=== PATIENT | male | born 1995 | race Two or more races ===

== ENCOUNTER 2024-07-16 08:19 | Outpatient (REF) | payer OTHER, SELFPAY ==
[2024-07-16 09:57] LABS: MANUAL DIFF FLAG NO
[2024-07-16 11:30] LABS: Appearance Urine Clear; Color Urine Yellow; Glucose Urine UA Negative (Negative); Leukocyte Esterase Urine Trace (Negative); Nitrite Urine Negative (Negative); Specific Gravity - Urine 1.025 (1.005-1.025); UMIC TRIGGER UACC YES; Urine Blood Negative (Negative); Urine Ketones Negative (Negative); Urine Protein Negative (Neg-Trace)
[2024-07-16 11:30] LABS: Basophils Absolute Auto 0.1 X10*3/uL (0.0-0.2); Eosinophils Absolute Auto 0.1 X10*3/uL (0.0-0.4); Eosinophils Percent Auto 1.1 % (0-4); Hematocrit 46.2 % (42.0-52.0); Hemoglobin 15.8 g/dl (14.0-18.0); Imm Gran Abs Auto 0.02 X10*3/uL (0.00-0.03); Imm Gran Pct Auto 0.3 % (0.0-0.4); Lymphocytes Absolute Auto 2.9 X10*3/uL (1.2-4.9); Lymphocytes Percent Auto 46.7 % (20-40); Mean Corpuscular HGB Conc 34.2 g/dl (31.0-36.0); Mean Corpuscular Hemoglobin 28.9 pg (27.0-33.0); Mean Corpuscular Volume 84.6 fL (80.0-98.0); Mean Platelet Volume 10.8 fL (9.4-12.4); Monocytes Absolute Auto 0.4 X10*3/uL (0.1-1.2); Monocytes Percent Auto 7.1 % (2-11); Neutrophils Absolute Auto 2.7 x10*3/uL (2.0-8.3); Neutrophils Percent Auto 43.8 % (45-73); Platelet Count 243 X10*3/uL (160-400); Red Blood Count 5.46 X10*6/uL (4.60-5.80); Red Cell Distribution Width 11.9 % (11.0-16.0); White Blood Count 6.2 X10*3/uL (4.8-10.8)
[2024-07-16 11:38] LABS: Bacteria Urine None Seen (None Seen); Hyaline Casts Urine 0-2 /LPF (0-2); RBC Urine 0-2 /HPF (0-2); Squamous Epithelial Cell Urine 0-2 /HPF (0-2); WBC Urine 0-5 /HPF (0-5)
[2024-07-16 12:23] LABS: Erythrocyte Sedimentation Rate 2 MM/HR (0-15)
[2024-07-16 12:55] LABS: Alanine Aminotransferase 66 U/L (0-40); Albumin Level 4.6 g/dL (3.5-5.0); Alkaline Phosphatase 65 U/L (39-117); Anion Gap 10 (12-20); Aspartate Amino Transferase 31 U/L (5-37); Bilirubin Total 0.3 mg/dL (0.0-1.0); Blood Urea Nitrogen 12 mg/dL (9-16); Calcium 9.2 mg/dL (8.4-10.2); Carbon Dioxide 23 mmol/L (22-29); Chloride 111 mmol/L (96-108); Cholesterol 179 mg/dL (<200); Estimated Glomerular Filt Rate > 60; Glucose Fasting 84 mg/dL (60-99); HDL Cholesterol 34 mg/dL (>40); LDL Cholesterol Calculated 123 mg/dL (<100); Potassium 4.4 mmol/L (3.3-5.1); Sodium 140 mmol/L (135-145); TSH reflex Free T4 1.06 uIU/mL (0.32-4.0); Total Protein 7.8 g/dL (6.5-8.0); Triglycerides 112 mg/dL (<150); Vitamin D 25-OH Total 22.8 ng/mL (>30)
== END 2024-07-16 08:20 | disposition home or self-care (01) ==
LOC: HO.LAB 08:19
DX: Z76.89 Persons encountering health services in other specified circumstances (principal); R12 Heartburn; Z00.00 Encounter for general adult medical examination without abnormal findings
CPT/HCPCS: 36415; 80053; 80061; 81001; 82306; 84443; 85025; 85652; 96127; 99202

== ENCOUNTER 2024-07-16 08:19 | Outpatient (AMB) | payer OTHER, SELFPAY ==
--- NOTE | 2024-07-16 08:23 | A.OFFPC_ITS ---
Vital Signs 07/16/24 08:24 Height 5 ft 9.29 in Weight 203 lb 6 oz BMI 29.8 BP 116/76 Blood Pressure Location Rt brachial Position Sitting Pulse 70 Pulse Source Pulse Oximeter Temp 97.5 F Temp Source Skin Pulse Oximetry (%) 96 Oxygen Delivery Method Room Air Intake Visit Reasons: Establish Care Intake Note: Patient is a new patient here to establish care for wellness visit. Transferring care from [facility] ([place]). Medical records have not been requested and have not received. 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 Operator: Present Accompanied by: Spouse Allergies No Known Allergies Allergy (Verified 07/16/24 08:39) Medication List - Last Reconciled 07/16/24 by DAY Zelaya No Known Home Meds Tobacco use date assessed: 07/16/24 Dental Screening Dental Screen Date: 07/16/24 Did you have a dental visit in the last 12 months?: No Did you have a dental problem in the last 6 months where you did not have access to dental care?: No Was dental information given to patient?: No HPI Establish Care HPI Details Previous PCP: a while ago, does not remember the name Last visit:1-2 years Last PE:not for awhile Specialist: GI OBGYN:n/a Past medical history: heart burn for along time-reason, reports gi and having an endoscopy done Medications: no medications currently Family HX:n/a Problem: The patient is a 28-year-old male presenting to establish care The patient is East Slavic speaking, ASL utilized He was treated but still has the heart burn, like heaviness in the stomach that the point of feeling like he cannot breath Reports that he was treated with a large dose of omeprazole about close to a year ago reports that he had an egd and was told everything was fine Reports that he gets the heartburn when he eats anything and not just specific foods Reports drinking coffee sometimes, denies alcohol intake, and denies smoking He denies constipation or diarrhea. He reports nausea after eating in the mornings, denies vomiting He reports a sour taste in her mouth at times This burning in the epigastric region. Reports at time he feels a pain in the right lower abdomen He denies pain today. No pain with deep palpation in all abdominal quadrants We will start the patient on pantoprazole 40 mg daily We will obtain the patient results of EGD Labs ordered for the patient to get an as soon as possible Patient to return for physical examined 2 weeks [facility] Medical History (Updated 07/18/24 @ 09:27 by Jaspal Hurst MD) No pertinent past medical history Surgical History History of endoscopy Social History Housing: House Alcohol intake: never Patient Tobacco Use Status: Never used Tobacco e-Cigarette/Vaping Use: Never Used Second Hand Smoke Exposure: No service: No Current occupational status: employed 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 1. Little interest or pleasure in doing things: not at all 2. Feeling down, depressed, or hopeless: not at all 3. Trouble falling or staying asleep, or sleeping too much: not at all 4. Feeling tired or having little energy: not at all 5. Poor appetite or overeating: not at all 6. Feeling bad about yourself - or that you are a failure or have let yourself or your family down: not at all 7. Trouble concentrating on things, such as reading the newspaper or watching television: not at all 8. Moving or speaking so slowly that other people could have noticed. Or the opposite - being so fidgety or restless that you have been moving around a lot more than usual: not at all 9. Thoughts that you would be better off or of hurting yourself in some way: not at all Total score: 0 Depression Screening Interpretation: Negative Depression Screening Done: Yes 09329 - PHQ-9 Billing: Yes Source: Developed by Drs. Darnell Poole, Jenifer Hickman, Matthew Bah and colleagues, with an educational aime from [employer]. Thrive Questionnaire Date Thrive assessed: 07/16/24 I am a: Patient What is your living situation today?: I have a steady place to live Within the past 12 months, did the food you bought not last and you didn't have the money to get more?: Never true Within the past 12 months, did you worry whether your food would run out before you got money to buy more?: Never true Do you have trouble paying for medicines?: No Do you have trouble getting transportation to medical appointments?: No Do you have trouble paying your heating and electricity bill?: No Do you have trouble taking care of your child, family member or friend?: No Do you have trouble with day-to-day activities such as bathing, preparing meals, shopping, managing finances, etc.?: No Are you currently unemployed and looking for a job?: No Are you interested in more education?: No Please select the resources that you would like help with: None Currently or been in a relationship where the following occur: No concerns reported THRIVE Score: 0 AUDIT C Alcohol Use Questionnaire (AUDIT-C) 1. How often do you have a drink containing alcohol?: Never 3. How often do you have six or more drinks on one occasion?: Never Total Score: 0 Score Reviewed/Action Taken: Yes PHILOMENA-7 AMB Questionnaire PHILOMENA-7 Date PHILOMENA - 7 assessed: 07/16/24 Feeling nervous, anxious, or on edge: 0 = Not at all Not being able to stop or control worryin = Not at all Worrying too much about different things: 0 = Not at all Trouble relaxin = Not at all Being so restless that it is hard to sit still: 0 = Not at all Becoming easily annoyed or irritable: 0 = Not at all Feeling afraid as if something awful might happen: 0 = Not at all Total PHILOMENA-7 score (0-4 normal; 5-9 mild; 10-14 moderate; 15-21 severe): 0 Source: Developed by Drs. Darnell Pooel, Jenifer Hickman, Matthew Bah and colleagues, with an educational aime from [employer]. PHILOMENA-7 Assessment Billing PHILOMENA-7 Assessment Tool: PHILOMENA-7 Assessment 23927 Review of Systems Const Details: Denies chills, Denies fatigue, Denies fever(s), Denies headache(s) and Denies weakness HEENT Denies change in vision, Denies dizziness, Denies headache(s), Denies hearing loss, Denies nasal congestion, Denies sinus pain, Denies sinus pressure and Denies sore throat Card Denies chest pain, Denies lightheadedness, Denies dyspnea and Denies other (palpitations) Resp Denies cough, Denies dyspnea and Denies wheezing GI Reports right lower quadrant abdominal pain intermittently, Denies melena, Denies hematochezia, Denies change in bowel habits, + dyspepsia with all foods and ++nausea in the mornings after eating Denies hematuria and Denies dysuria Musc Denies abnormal gait, Denies myalgias, Denies arthralgias, Denies numbness and Denies tingling Skin/Breast Denies rash, Denies unusual bruising and Denies wounds Neuro Denies abnormal gait, Denies dizziness, Denies headache(s), Denies memory loss, Denies numbness, Denies Sensory deficit (Neuro), Denies tingling and Denies weakness Psych Denies anxiety, Denies depression and Denies memory loss Endo Denies cold intolerance, Denies fatigue, Denies heat intolerance, Denies polydipsia and Denies polyuria Uriel/Lymph Denies easy bleeding and Denies easy bruising Aller/Immun Denies wheezing Physical exam (Primary Care) Vital Signs: Last Vital Signs Temp 97.5 F 07/16/24 08:24 Pulse 70 07/16/24 08:24 BP 116/76 07/16/24 08:24 Pulse Ox 96 07/16/24 08:24 Oxygen Delivery Method Room Air 07/16/24 08:24 BMI result Body Mass Index 29.8 Tobacco/Smoking Status: Tobacco use Status Tobacco use date assessed 07/16/24 07/16/24 08:27 Patient Tobacco Use Status Never used Tobacco 07/16/24 08:27 e-Cigarette/Vaping Use Never Used 07/16/24 08:27 PHQ-9: PHQ-9 Score PHQ-9: Total score 0 07/16/24 10:03 Depression Screening Interpretation: Negative Thrive Assessment: Date of Thrive Assessment Date Thrive assessed 07/16/24 07/16/24 08:27 Currently or been in a relationship where the following occur: No concerns reported Const Other: General: no acute distress, well developed, alert and awake Nutritional Appearance: well nourished Orientation/consciousness: patient oriented x3 HENMT Head: Yes normocephalic and Yes atraumatic Ears: hearing grossly normal bilaterally and TM's normal bilaterally General nose exam: Normal external nose present and Normal nares present Mouth: Normal oral and palatal mucosa present and moist mucous membranes Teeth and gingiva: dentition normal Throat: Yes oropharynx normal Eyes Pupils: Equal, round and reactive pupils present and Pupil accommodation reflex normal EOM: EOMs intact bilaterally Neck Neck: Yes normal visual inspection, Yes no lymphadenopathy and Yes trachea midline Thyroid: Thyroid normal Carotids: no bruits Lymphatic: no lymphadenopathy noted Chest Chest palpation & inspection: normal inspection of the chest Resp Effort & Inspection: normal respiratory effort Auscultation: clear to auscultation bilaterally Cardio Rate: regular rate Rhythm: regular rhythm Heart sounds: S1 normal heart sound present, S2 normal heart sound present, no gallops, no murmurs and no rubs Bruits: no abdominal aortic bruits and no carotid bruits GI Palpation (GI): No Abdominal aortic bruit present, Soft to palpation, nontender, No hepatosplenomegaly present and No Rebound tenderness present Auscultation: normal bowel sounds General: Yes no CVA tenderness Back/Spine/Pelvis Back: no CVA tenderness Cervical Spine: cervical ROM normal and No Cervical spine tenderness Thoracic/Lumbar Spine: Lumbar or thoracic tenderness Skin General: warm and dry. Normal skin color. Normal skin turgor Lesions: no lesions Nails: normal Neuro General: patient oriented x3, gait normal Cranial nerves: Yes Equal, round and reactive pupils present Cognition (Neuro): normal cognition Gait exam (Neuro): Normal gait present Extrem General: Yes normal to inspection, No edema and No calf tenderness Psych Appearance: grossly normal Affect: normal affect Attitude: cooperative Thought process: Normal thought process present Coding Level of Care Code New Pt Level 4 (76195) Diagnoses Encounter to establish care Z76.89 Heart burn R12 Additional Codes PHILOMENA-7 Assessment Billing - PHILOMENA-7 Assessment Tool: PHILOMENA-7 Assessment 93401 ([id number]) PHQ-9 - 59106 - PHQ-9 Billing: Yes ([id number]) Time Spent (min) 33 Assessment & Plan Assessment & Plan (1) Encounter to establish care: Code(s): Z76.89 - Persons encountering health services in other specified circumstances Category: Medical Plan: Patient has not have a physical in a while, will order labs and have the patient return for an annual physical in two weeks (2) Heart burn: Code(s): R12 - Heartburn Category: Medical Plan: Patient reports and history of heartburn, close to a year ago he had an EGD- reports that he was told it was fine Reports that he was treated on high dose of omeprazole, but the heartburn came back We will start the patient on pantoprazole 40 mg daily Plan To return in 2 weeks for his annual physical examination Orders: Orders TSH reflex Free T4 07/16/24 R12 - Heartburn, - Encounter for general adult medical examination without abnormal findings Lipid Panel 07/16/24 R12 - Heartburn, - Encounter for general adult medical examination without abnormal findings Glucose Fasting 07/16/24 R1 - Heartburn, - Encounter for general adult medical examination without abnormal findings Erythrocyte Sedimentation Rate 07/16/24 R1 - Heartburn, - Encounter for general adult medical examination without abnormal findings UA CC w/rflx Micro + Cult 07/16/24 R1 - Heartburn, Z - Encounter for general adult medical examination without abnormal findings Complete Blood Count Auto Diff 07/16/24 R12 - Heartburn, . - Encounter for general adult medical examination without abnormal findings Comprehensive [place]. Panel Fast 07/16/24 R1 - Heartburn, - Encounter for general adult medical examination without abnormal findings Vitamin D 25-OH Total 07/16/24 R12 - Heartburn, - Encounter for general adult medical examination without abnormal findings Medications: New pantoprazole 40 mg PO DAILY 30 tabs 2RF
[2024-07-16 08:24] VITALS: BP 116/76; PULSE 70; TEMP 36.4; O2SAT 96; BMI 29.8
== END 2024-07-16 09:12 | disposition home or self-care (01) ==
DX: Z76.89 Persons encountering health services in other specified circumstances (principal); R12 Heartburn

== ENCOUNTER 2024-07-30 08:29 | Outpatient (AMB) | payer OTHER, SELFPAY ==
[2024-07-30 08:35] VITALS: BP 106/68; PULSE 71; O2SAT 96
--- NOTE | 2024-07-30 08:35 | A.OFFPC_ITS ---
Vital Signs 07/30/24 08:35 Height 5 ft 9.29 in Weight 205 lb 2 oz BMI 30.0 BP 106/68 Blood Pressure Location Lt brachial Position Sitting Pulse 71 Pulse Source Pulse Oximeter Pulse Oximetry (%) 96 Oxygen Delivery Method Room Air Intake Visit Reasons: Annual Exam Excel Analyst Required: Yes Excel Analyst Name: [id number] Information Interpreted: non-clinical & clinical Direct Chill Caster: Not Required per policy Accompanied by: Self / Same As Patient Allergies No Known Allergies Allergy (Verified 07/30/24 08:42) Medication List - Last Reconciled 07/30/24 by DAY Zelaya pantoprazole 40 mg PO DAILY Tobacco use date assessed: 07/30/24 Dental Screening Dental Screen Date: 07/30/24 Did you have a dental visit in the last 12 months?: No Did you have a dental problem in the last 6 months where you did not have access to dental care?: No Was dental information given to patient?: No HPI Annual Exam HPI Details Dentist: up to date Eye: none Snellen: Right: Left: Corrected vision: Reports that his eyes are completed fine STI screening:n/a Colonoscopy: n/a Pap Smer:n/a PHQ-9: Flu: declines COVID: x2-no boosters Tdap:will have to ask his when he has this last Diet: regular Exercise: reports going the pool sometimes to swim patient is a 28-year-old Tristanian speaking male. clay hoister service was u tilized Patient reports that he started the pantoprazole and his symptoms has decreased significantly However, he is waking up in the morning nauseous before eating, drinking or taking his medication We are awaiting EGD report from [facility] that was done over a year ago The patient as a discharge note that says that no abnormalities was found on EGD They recommended that the patient be started on a PPI The patient wanted to know if these statements confirmed a diagnosis of GERD Discussed with patient about referring him to GI for further evaluation we will also start the patient on famotidine 40 mg at [facility] Medical History (Updated 07/30/24 @ 22:56 by DAY Zelaya) No pertinent past medical history Surgical History History of endoscopy Social History Housing: House Alcohol intake: never Patient Tobacco Use Status: Never used Tobacco e-Cigarette/Vaping Use: Never Used Second Hand Smoke Exposure: No service: No Current occupational status: employed 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 1. Little interest or pleasure in doing things: not at all 2. Feeling down, depressed, or hopeless: not at all 3. Trouble falling or staying asleep, or sleeping too much: not at all 4. Feeling tired or having little energy: not at all 5. Poor appetite or overeating: not at all 6. Feeling bad about yourself - or that you are a failure or have let yourself or your family down: not at all 7. Trouble concentrating on things, such as reading the newspaper or watching television: not at all 8. Moving or speaking so slowly that other people could have noticed. Or the opposite - being so fidgety or restless that you have been moving around a lot more than usual: not at all 9. Thoughts that you would be better off or of hurting yourself in some way: not at all Total score: 0 Depression Screening Interpretation: Negative Depression Screening Done: Yes 35986 - PHQ-9 Billing: Yes Source: Developed by Drs. Darnell Poole, Jenifer Hickman, Matthew Bah and colleagues, with an educational aime from [employer]. Thrive Questionnaire Date Thrive assessed: 07/30/24 I am a: Patient What is your living situation today?: I have a steady place to live Within the past 12 months, did the food you bought not last and you didn't have the money to get more?: Never true Within the past 12 months, did you worry whether your food would run out before you got money to buy more?: Never true Do you have trouble paying for medicines?: No Do you have trouble getting transportation to medical appointments?: No Do you have trouble paying your heating and electricity bill?: No Do you have trouble taking care of your child, family member or friend?: No Do you have trouble with day-to-day activities such as bathing, preparing meals, shopping, managing finances, etc.?: No Are you currently unemployed and looking for a job?: No Are you interested in more education?: No Please select the resources that you would like help with: None Currently or been in a relationship where the following occur: No concerns reported THRIVE Score: 0 AUDIT C Alcohol Use Questionnaire (AUDIT-C) 1. How often do you have a drink containing alcohol?: Never 3. How often do you have six or more drinks on one occasion?: Never Total Score: 0 Score Reviewed/Action Taken: Yes PHILOMENA-7 AMB Questionnaire PHILOMENA-7 Date PHILOMENA - 7 assessed: 07/30/24 Feeling nervous, anxious, or on edge: 0 = Not at all Not being able to stop or control worryin = Not at all Worrying too much about different things: 0 = Not at all Trouble relaxin = Not at all Being so restless that it is hard to sit still: 0 = Not at all Becoming easily annoyed or irritable: 0 = Not at all Feeling afraid as if something awful might happen: 0 = Not at all Total PHILOMENA-7 score (0-4 normal; 5-9 mild; 10-14 moderate; 15-21 severe): 0 Source: Developed by Drs. Darnell Poole, Jenifer Hickman, Matthew Bah and colleagues, with an educational aime from [employer]. PHILOMENA-7 Assessment Billing PHILOMENA-7 Assessment Tool: PHILOMENA-7 Assessment 56869 Review of Systems Const Details: Denies chills, Denies fatigue, Denies fever(s), Denies headache(s) and Denies weakness HEENT Denies change in vision, Denies dizziness, Denies headache(s), Denies hearing loss, Denies nasal congestion, Denies sinus pain, Denies sinus pressure and Denies sore throat Card Denies chest pain, Denies lightheadedness, Denies dyspnea and Denies other (palpitations) Resp Denies cough, Denies dyspnea and Denies wheezing GI Denies abdominal pain, Denies melena, Denies hematochezia, Denies change in bowel habits, +dyspepsia on and off depending foods and +nausea in the cocktail lounge manager prior to eating or drinking Denies hematuria and Denies dysuria Musc Denies abnormal gait, Denies myalgias, Denies arthralgias, Denies numbness and Denies tingling Skin/Breast Denies rash, Denies unusual bruising and Denies wounds Neuro Denies abnormal gait, Denies dizziness, Denies headache(s), Denies memory loss, Denies numbness, Denies Sensory deficit (Neuro), Denies tingling and Denies weakness Psych Denies anxiety, Denies depression and Denies memory loss Endo Denies cold intolerance, Denies fatigue, Denies heat intolerance, Denies polydipsia and Denies polyuria Uriel/Lymph Denies easy bleeding and Denies easy bruising Aller/Immun Denies wheezing Physical exam (Primary Care) Vital Signs: Last Vital Signs Pulse 71 07/30/24 08:35 BP 106/68 07/30/24 08:35 Pulse Ox 96 07/30/24 08:35 Oxygen Delivery Method Room Air 07/30/24 08:35 BMI result Body Mass Index 30.0 Tobacco/Smoking Status: Tobacco use Status Tobacco use date assessed 07/30/24 07/30/24 08:41 Patient Tobacco Use Status Never used Tobacco 07/30/24 08:41 e-Cigarette/Vaping Use Never Used 07/30/24 08:41 PHQ-9: PHQ-9 Score PHQ-9: Total score 0 07/30/24 08:41 Depression Screening Interpretation: Negative Thrive Assessment: Date of Thrive Assessment Date Thrive assessed 07/30/24 07/30/24 08:41 Currently or been in a relationship where the following occur: No concerns reported Const Other: General: no acute distress, well developed, alert and awake Nutritional Appearance: well nourished Orientation/consciousness: patient oriented x3 HENMT Head: Yes normocephalic and Yes atraumatic Ears: hearing grossly normal bilaterally and TM's normal bilaterally General nose exam: Normal external nose present and Normal nares present Mouth: Normal oral and palatal mucosa present and moist mucous membranes Teeth and gingiva: dentition normal Throat: Yes oropharynx normal Eyes Pupils: Equal, round and reactive pupils present and Pupil accommodation reflex normal EOM: EOMs intact bilaterally Neck Neck: Yes normal visual inspection, Yes no lymphadenopathy and Yes trachea midline Thyroid: Thyroid normal Carotids: no bruits Lymphatic: no lymphadenopathy noted Chest Chest palpation & inspection: normal inspection of the chest Resp Effort & Inspection: normal respiratory effort Auscultation: clear to auscultation bilaterally Cardio Rate: regular rate Rhythm: regular rhythm Heart sounds: S1 normal heart sound present, S2 normal heart sound present, no gallops, no murmurs and no rubs Bruits: no abdominal aortic bruits and no carotid bruits GI Palpation (GI): No Abdominal aortic bruit present, Soft to palpation, nontender, No hepatosplenomegaly present and No Rebound tenderness present Auscultation: normal bowel sounds General: Yes no CVA tenderness Back/Spine/Pelvis Back: no CVA tenderness Cervical Spine: cervical ROM normal and No Cervical spine tenderness Thoracic/Lumbar Spine: thoraco-lumbar ROM normal, No pain with thoraco-lumbar ROM, No thoracic spinal tenderness and No lumbar spinal tenderness Skin General: warm and dry. Normal skin color. Normal skin turgor Lesions: no lesions Rashes: no rashes Trauma: no lacerations or abrasions Wounds: no wounds Nails: normal Neuro General: patient oriented x3, gait normal and CN's II-XI intact bilaterally Cranial nerves: Yes Equal, round and reactive pupils present Cognition (Neuro): normal cognition Gait exam (Neuro): Normal gait present Motor exam (neuro): 5/5 motor strength present throughout Sensory Exam: No Sensory deficit (Neuro) Deep tendon reflexes (DTR's): Right patellar reflex intensity grade: 2+ and Left patellar reflex intensity grade: 2+ Extrem General: Yes normal to inspection, No edema and No calf tenderness Psych Appearance: grossly normal Affect: normal affect Attitude: cooperative Thought process: Normal thought process present Results Reviewed Results Reviewed: Laboratory Tests 07/16/24 07/16/24 09:52 09:56 WBC 6.2 RBC 5.46 Hgb 15.8 Hct 46.2 Plt Count 243 Sodium 140 Potassium 4.4 Chloride 111 H Carbon Dioxide 23 Anion Gap 10 L BUN 12 Creatinine 0.82 Estimated GFR > 60 Fasting Glucose 84 AST 31 ALT 66 H Alkaline Phosphatase 65 Triglycerides 112 Cholesterol 179 LDL Cholesterol, Calc 123 H HDL Cholesterol 34 L 25-OH Vitamin D Total 22.8 L TSH 1.06 Urine Color Yellow Urine Appearance Clear Urine pH 5.0 Ur Specific Warren 1.025 Urine Protein Negative Urine Glucose (UA) Negative Urine Ketones Negative Urine Blood Negative Urine Nitrite Negative Ur Leukocyte Esterase Trace H Urine RBC 0-2 Urine WBC 0-5 Ur Squamous Epith Cells 0-2 Urine Bacteria None Seen Hyaline Casts 0-2 Coding Level of Care Code Est Pt Prev Care 18-39y(43575) Diagnoses Annual physical exam Z00.00 Heart burn R12 Elevated LDL cholesterol level E78.00 Elevated alanine aminotransferase (ALT) level R74.01 Obesity (BMI 30.0-34.9) E66.811 Additional Codes PHILOMENA-7 Assessment Billing - PHILOMENA-7 Assessment Tool: PHILOMENA-7 Assessment 39068 ([id number]) PHQ-9 - 75017 - PHQ-9 Billing: Yes ([id number]) Time Spent (min) 39 Assessment & Plan Assessment & Plan (1) Annual physical exam: Code(s): Z00.00 - Encounter for general adult medical examination without abnormal findings Category: Medical Plan: Review guidelines and recent labs with patient (2) Heart burn: Code(s): R12 - Heartburn Category: Medical Plan: Patient reports and history of heartburn, close to a year ago he had an EGD- reports that he was told it was fine Reports that he was treated on high dose of omeprazole, but the heartburn came back The patient was started on pantoprazole 40 mg daily. He is feeling much better, but is getting early mornings nausea. Will the patient on Famotidine 40 mg at bedtime and refer the patient to GI for further evaluation (3) Elevated LDL cholesterol level: Code(s): E78.00 - Pure hypercholesterolemia, unspecified Category: Medical Plan: LDL elevated-discussed the patient about dietary modification will repeat labs in 3 months (4) Elevated alanine aminotransferase (ALT) level: Code(s): R74.01 - Elevation of levels of liver transaminase levels Category: Medical Plan: ALT elevated -discussed with the patient that this could be due to his elevated LDL. Dietary modifications recommended. CMP will be repeated in 3 months (5) Obesity (BMI 30.0-34.9): Code(s): E66.811 - Obesity, class 1 Category: Medical Plan: Diet/exercise discussed in detail Encouraged to exercise for at least 30 minutes a day/5 days a week Healthy eating discussed. Encouraged to eat fruits/vegetables, protein- fish/baked chicken, and to avoid salty/fried foods, sweets, caffeine and carbohydrates. Encouraged to increase water intake 6-8 glasses a day Plan The patient to return in 3 months f/u. Labs ordered for the patient to complete before appt Orders: Orders Vitamin D 25-OH Total 3 Months E78.00 - Pure hypercholesterolemia, unspecified, R12 - Heartburn, R74.01 - Elevation of levels of liver transaminase levels Lipid Panel 3 Months E78.00 - Pure hypercholesterolemia, unspecified, R12 - Heartburn, R74.01 - Elevation of levels of liver transaminase levels Comprehensive [place]. Panel Fast 3 Months E78.00 - Pure hypercholesterolemia, unspecified, R12 - Heartburn, R74.01 - Elevation of levels of liver transaminase levels Medications: New famotidine 40 mg PO BEDTIME 30 tabs 3RF cholecalciferol (vitamin D3) 25 mcg PO DAILY 30 caps 3RF
== END 2024-07-30 09:30 | disposition home or self-care (01) ==
DX: Z00.00 Encounter for general adult medical examination without abnormal findings (principal); R12 Heartburn; Z68.30 Body mass index [BMI] 30.0-30.9, adult; E66.811 Obesity, class 1; E78.00 Pure hypercholesterolemia, unspecified; R74.01 Elevation of levels of liver transaminase levels

== ENCOUNTER → 2024-07-30 08:29 | Outpatient (BNVA) | payer OTHER, SELFPAY | DX: Z00.00 Encounter for general adult medical examination without abnormal findings (principal); R12 Heartburn; E78.00 Pure hypercholesterolemia, unspecified; R74.01 Elevation of levels of liver transaminase levels; E66.811 Obesity, class 1; Z68.30 Body mass index [BMI] 30.0-30.9, adult; Z71.3 Dietary counseling and surveillance | CPT/HCPCS: 96127; 99395 ==

== ENCOUNTER 2024-10-25 07:36 | Outpatient (REF) | payer OTHER, SELFPAY ==
[2024-10-25 08:34] LABS: Appearance Urine Clear; Color Urine Yellow; Glucose Urine UA Negative (Negative); Leukocyte Esterase Urine Negative (Negative); Nitrite Urine Negative (Negative); Specific Gravity - Urine >= 1.030 (1.005-1.025); Urine Blood Negative (Negative); Urine Ketones Trace mg/dL (Negative); Urine Protein Negative (Neg-Trace)
[2024-10-25 09:18] LABS: Alanine Aminotransferase 60 U/L (0-40); Albumin Level 4.9 g/dL (3.5-5.0); Alkaline Phosphatase 65 U/L (39-117); Anion Gap 13 (12-20); Aspartate Amino Transferase 32 U/L (5-37); Bilirubin Total 0.4 mg/dL (0.0-1.0); Blood Urea Nitrogen 14 mg/dL (9-16); Calcium 9.3 mg/dL (8.4-10.2); Carbon Dioxide 25 mmol/L (22-29); Chloride 109 mmol/L (96-108); Cholesterol 184 mg/dL (<200); Estimated Glomerular Filt Rate > 60; Glucose Fasting 106 mg/dL (60-99); HDL Cholesterol 35 mg/dL (>40); LDL Cholesterol Calculated 126 mg/dL (<100); Potassium 4.9 mmol/L (3.3-5.1); Sodium 142 mmol/L (135-145); Total Protein 7.4 g/dL (6.5-8.0); Triglycerides 117 mg/dL (<150)
[2024-10-25 09:21] LABS: Vitamin D 25-OH Total 25.4 ng/mL (>30)
== END 2024-10-25 07:37 | disposition home or self-care (01) ==
LOC: HO.LAB 07:36
DX: Z00.00 Encounter for general adult medical examination without abnormal findings (principal); R74.01 Elevation of levels of liver transaminase levels; E78.00 Pure hypercholesterolemia, unspecified; R12 Heartburn
CPT/HCPCS: 36415; 80053; 80061; 81003; 82306

== ENCOUNTER 2025-02-21 15:36 | Outpatient (AMB) | payer OTHER, SELFPAY ==
[2025-02-21 15:38] VITALS: BP 120/60; PULSE 68; RESP 18; TEMP 36.3; O2SAT 97; BMI 29.7
--- NOTE | 2025-02-21 15:38 | A.OFFPC_ITS ---
Vital Signs 02/21/25 15:38 Height 5 ft 9.29 in Weight 202 lb 8 oz BMI 29.7 BP 120/60 Blood Pressure Location Lt brachial Position Sitting Respiration 18 Pulse 68 Pulse Source Pulse Oximeter Temp 97.3 F Temp Source Temporal Artery Scan Pulse Oximetry (%) 97 Oxygen Delivery Method Room Air Intake Visit Reasons: Follow up RE Nutrition Assistant Required: Yes Accompanied by: Self / Same As Patient Allergies No Known Allergies Allergy (Verified 02/21/25 15:57) Medication List - Last Reconciled 02/21/25 by DAY Zelaya famotidine 40 mg PO BEDTIME Tobacco use date assessed: 02/21/25 Dental Screening Dental Screen Date: 02/21/25 Did you have a dental visit in the last 12 months?: No Did you have a dental problem in the last 6 months where you did not have access to dental care?: No Was dental information given to patient?: No HPI Follow up RE HPI Details The patient is [place] speaking gentleman. Interpretor via IPAD used The patient is a 29-year-old male presenting with gastroesophageal reflux disease (GERD). He experiences daily heartburn, which is managed with famotidine 40 mg, but symptoms recur if a dose is missed. The patient report previous endoscopy at [facility], no records of this noted even after checking 5 years back. The patient has elevated liver enzymes, specifically ALT, which has been trending down but remains slightly elevated. Occasional alcohol consumption may contribute to this elevation. Hypercholesterolemia is present, with cholesterol levels trending negatively. Dietary changes have been advised to manage cholesterol levels. The patient has a vitamin D deficiency, with levels improving but still below the target of 30 ng/mL. He is not currently taking vitamin D supplements. 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 Cognitive needs: No Hearing needs: No Vision needs: No Questionnaire Thrive Questionnaire Date Thrive assessed: 07/16/24 I am a: Patient What is your living situation today?: I have a steady place to live Within the past 12 months, did the food you bought not last and you didn't have the money to get more?: Never true Within the past 12 months, did you worry whether your food would run out before you got money to buy more?: Never true Do you have trouble paying for medicines?: No Do you have trouble getting transportation to medical appointments?: No Do you have trouble paying your heating and electricity bill?: No Do you have trouble taking care of your child, family member or friend?: No Do you have trouble with day-to-day activities such as bathing, preparing meals, shopping, managing finances, etc.?: No Are you currently unemployed and looking for a job?: No Are you interested in more education?: No Please select the resources that you would like help with: None Currently or been in a relationship where the following occur: No concerns reported THRIVE Score: 0 PHILOMENA-7 AMB Questionnaire PHILOMENA-7 Date PHILOMENA - 7 assessed: 07/30/24 Source: Developed by Drs. Darnell Poole, Jenifer Hickman, Matthew Bah and colleagues, with an educational aime from [employer]. Review of Systems Const Denies headache(s) Eyes Denies loss of vision ENT Denies vertigo, Denies dizziness, Denies headache(s) and Denies sore throat Card Denies chest pain, Denies leg edema and Denies lightheadedness Resp Denies cough, Denies hemoptysis and Denies wheezing GI Denies abdominal pain, Denies melena, Denies constipation, Reports heartburn (he does not take his famotidine), Denies diarrhea and Denies vomiting Denies dysuria, Denies urinary frequency and Denies urinary urgency Musc Denies arthralgias, Denies joint swelling, Denies numbness and Denies tingling Neuro Denies Abnormal speech present, Denies behavioral changes, Denies vertigo, De nies dizziness, Denies headache(s), Denies loss of vision, Denies memory loss, Denies numbness and Denies tingling Psych Denies anxiety, Denies behavioral changes, Denies depression, Denies memory loss and Denies panic attacks Uriel/Lymph Denies easy bleeding and Denies easy bruising Aller/Immun Denies wheezing Physical exam (Primary Care) Vital Signs: Last Vital Signs Temp 97.3 F 02/21/25 15:38 Pulse 68 02/21/25 15:38 Resp 18 02/21/25 15:38 BP 120/60 02/21/25 15:38 Pulse Ox 97 02/21/25 15:38 Oxygen Delivery Method Room Air 02/21/25 15:38 BMI result Body Mass Index 29.7 Tobacco/Smoking Status: Tobacco use Status Tobacco use date assessed 02/21/25 02/21/25 15:55 Patient Tobacco Use Status Never used Tobacco 02/21/25 15:55 e-Cigarette/Vaping Use Never Used 02/21/25 15:55 Thrive Assessment: Date of Thrive Assessment Date Thrive assessed 07/16/24 02/21/25 15:55 Currently or been in a relationship where the following occur: No concerns reported Const General: healthy appearing, no acute distress, alert and awake Nutritional Appearance: well nourished Orientation/consciousness: oriented to person, oriented to place and oriented to time HENMT Ears: TM's normal bilaterally General nose exam: Normal nasal mucous membranes and turbinates present Eyes Conjunctivae: conjunctivae normal Sclerae: sclerae normal Pupils: Equal, round and reactive pupils present Neck Neck: Yes no lymphadenopathy and Yes no JVD Thyroid: Thyroid normal Carotids: no bruits Resp Effort & Inspection: normal respiratory effort and not tachypneic Auscultation: no crackles, no rales, no rhonchi and no wheezes Cardio Rate: regular rate Rhythm: regular rhythm Heart sounds: no murmurs and normal S1 and S2 GI Palpation (GI): Soft to palpation, nontender, no hepatomegaly and no splenomegaly Auscultation: normal bowel sounds Skin General skin exam: no rashes or lesions noted and dry skin Neuro General: oriented to person, oriented to place and oriented to time Cranial nerves: Yes Equal, round and reactive pupils present Speech: No Abnormal speech present Gait exam (Neuro): Normal gait present Motor exam (neuro): no tremor noted Extrem Right upper extremity: full ROM Left upper extremity: full ROM Right lower extremity: full ROM; no edema Left lower extremity: full ROM; no edema Psych Mental Status: mental status grossly normal Speech and movement: Normal speech and movement present Affect: normal affect Attitude: cooperative Thought process: Normal thought process present Results Reviewed Results Reviewed: Laboratory Tests 10/25/24 10/25/24 07:50 07:51 Sodium 142 Potassium 4.9 Chloride 109 H Carbon Dioxide 25 Anion Gap 13 BUN 14 Creatinine 0.92 Estimated GFR > 60 Fasting Glucose 106 H Calcium 9.3 Total Bilirubin 0.4 AST 32 ALT 60 H Alkaline Phosphatase 65 Total Protein 7.4 Albumin 4.9 Triglycerides 117 Cholesterol 184 LDL Cholesterol, Calc 126 H HDL Cholesterol 35 L 25-OH Vitamin D Total 25.4 L Urine Color Yellow Urine Appearance Clear Urine pH 5.0 Ur Specific [place] >= 1.030 H Urine Protein Negative Urine Glucose (UA) Negative Urine Ketones Trace Urine Blood Negative Urine Nitrite Negative Ur Leukocyte Esterase Negative Coding Level of Care Code Est Pt Level 3 (38475) Diagnoses Heart burn R12 Elevated LDL cholesterol level E78.00 Elevated alanine aminotransferase (ALT) level R74.01 Obesity (BMI 30.0-34.9) E66.811 Time Spent (min) 34 Assessment & Plan Assessment & Plan (1) Heart burn: Code(s): R12 - Heartburn Category: Medical Plan: Patient reports and history of heartburn that continous if he does not take his famotidine 40 mg at bedtime He reports that he had a EGD at [facility] with negative results No documentation of this noted, even after going back 5 years Will refer the patient to GI to further evaluate (2) Elevated LDL cholesterol level: Code(s): E78.00 - Pure hypercholesterolemia, unspecified Category: Medical Plan: tri 117/total chol 184/ldl 126/hdl 35 LDL elevated-discussed the patient about dietary modification will repeat labs in 4 months (3) Elevated alanine aminotransferase (ALT) level: Code(s): R74.01 - Elevation of levels of liver transaminase levels Category: Medical Plan: ALT continues to be elevated though decreased from 66 to 60-discussed lifestyle modifications limit alcohol/drugs containing acetaminophen or tylenol/ low fat foods abdominal US ordered along with a liver profile panel He was also referred to GI Will repeat CMP in 4 months (4) Obesity (BMI 30.0-34.9): Code(s): E66.811 - Obesity, class 1 Category: Medical Plan: Encouraged to exercise for at least 30 minutes a day/5 days a week Healthy eating discussed. Encouraged to eat fruits/vegetables, protein- fish/baked chicken, and to avoid salty/fried foods, sweets, caffeine and carbohydrates. Encouraged to increase water intake 6-8 glasses a day Plan The patient to return in 4 months f/u. Labs ordered for the patient to complete before appt Orders: Orders US abdomen complete 02/21/25 R10.9 - Unspecified abdominal pain Vitamin D 25-OH Total 02/21/25 E55.9 - Vitamin D deficiency, unspecified, E66.811 - Obesity, class 1, E78.00 - Pure hypercholesterolemia, unspecified, R10.9 - Unspecified abdominal pain, R12 - Heartburn, R74.01 - Elevation of leve ls of liver transaminase levels Lipid Panel 02/21/25 E55.9 - Vitamin D deficiency, unspecified, E66.811 - Obesity, class 1, E78.00 - Pure hypercholesterolemia, unspecified, R10.9 - Unspecified abdominal pain, R12 - Heartburn, R74.01 - Elevation of levels of liver transaminase levels UA CC w/rflx Micro + Cult 02/21/25 E55.9 - Vitamin D deficiency, unspecified, E66.811 - Obesity, class 1, E78.00 - Pure hypercholesterolemia, unspecified, R10.9 - Unspecified abdominal pain, R12 - Heartburn, R74.01 - Elevation of levels of liver transaminase levels TSH reflex Free T4 02/21/25 E55.9 - Vitamin D deficiency, unspecified, E66.811 - Obesity, class 1, E78.00 - Pure hypercholesterolemia, unspecified, R10.9 - Unspecified abdominal pain, R12 - Heartburn, R74.01 - Elevation of levels of liver transaminase levels Comprehensive [place]. Panel Fast 02/21/25 E55.9 - Vitamin D deficiency, unspecified, E66.811 - Obesity, class 1, E78.00 - Pure hypercholesterolemia, unspecified, R10.9 - Unspecified abdominal pain, R12 - Heartburn, R74.01 - Elevation of levels of liver transaminase levels Hepatitis B,C Profile 02/21/25 E55.9 - Vitamin D deficiency, unspecified, E66.811 - Obesity, class 1, E78.00 - Pure hypercholesterolemia, unspecified, R10.9 - Unspecified abdominal pain, R12 - Heartburn, R74.01 - Elevation of levels of liver transaminase levels Ferritin 02/21/25 E55.9 - Vitamin D deficiency, unspecified, E66.811 - Obesity, class 1, E78.00 - Pure hypercholesterolemia, unspecified, R10.9 - Unspecified abdominal pain, R12 - Heartburn, R74.01 - Elevation of levels of liver transaminase levels Referrals Gastroenterology Referral R10.9 - Unspecified abdominal pain, R12 - Heartburn, R74.01 - Elevation of levels of liver transaminase levels
== END 2025-02-21 16:22 | disposition home or self-care (01) ==
LOC: HO.HMCH 15:37
DX: R12 Heartburn (principal); E78.00 Pure hypercholesterolemia, unspecified; E66.811 Obesity, class 1; Z68.29 Body mass index [BMI] 29.0-29.9, adult; R74.01 Elevation of levels of liver transaminase levels

== ENCOUNTER → 2025-02-21 15:36 | Outpatient (BNVA) | payer OTHER, SELFPAY | DX: K21.9 Gastro-esophageal reflux disease without esophagitis (principal); R51.9 Headache, unspecified; E78.00 Pure hypercholesterolemia, unspecified; E55.9 Vitamin D deficiency, unspecified; R74.01 Elevation of levels of liver transaminase levels; R12 Heartburn; E66.811 Obesity, class 1; Z68.29 Body mass index [BMI] 29.0-29.9, adult | CPT/HCPCS: 99212 ==

== ENCOUNTER 2025-04-04 08:36 | Outpatient (REF) | payer OTHER, SELFPAY ==
--- NOTE | ~2025-04-04 | US_ITS ---
CLINICAL HISTORY: R10.9 - Unspecified abdominal pain US abdomen complete Comparison: None provided Findings: The visualized pancreas is normal. Liver measures 17.6 cm in length. Increased hepatic echogenicity. There is no intrahepatic bile duct dilatation. The common duct is 3 mm in diameter. The gallbladder is normal. There is no sonographic Perdomo sign. The main portal vein is antegrade. The right kidney is 12.3 cm in length. The left kidney is 11.6 cm in length. Unremarkable kidneys without hydronephrosis. Spleen measures 13.3 cm in length. No ascites. IMPRESSION: Hepatic steatosis. Mild hepatosplenomegaly. This document has been electronically signed by: Xiomara Vieira MD on 04/04/2025 10:54:51
== END 2025-04-04 08:37 | disposition home or self-care (01) ==
LOC: HO.HMGCX 08:36
DX: R10.9 Unspecified abdominal pain (principal)
CPT/HCPCS: 76700

== ENCOUNTER → 2025-04-04 08:39 | Outpatient (BNV) | payer OTHER, SELFPAY | PROVIDERS: Visit Provider Radiology Diagnostic Radiology | DX: R10.9 Unspecified abdominal pain (principal) | CPT/HCPCS: 76700 ==